=== PATIENT | female | born 1975 | race Caucasian/White ===

== ENCOUNTER 2022-12-19 18:36 | Outpatient (OUT) | payer OTHER, SELFPAY ==
--- NOTE | 2022-12-19 19:01 | MM_ITS ---
Patient Name DENNYS BONNER MR# Age Sex Date Time [id number] F 12/19/2022 18:40 At the Request Of DR TRACI VIGIL RADIOLOGY REPORT PROCEDURE: MM TOMOSYNTHESIS SCREENING BI COMPARISON: MG MAMM SCREEN KEKE W CAD, 12/31/2018. MG MAMM KEKE SCRN W CAD DIG, 11/13/2013. INDICATIONS: Screening Calculator Name NCI Breast Cancer Risk Assessment Tool 5 Year Breast Cancer Risk 1.00% Lifetime Breast Cancer Risk 10.30% Personal Breast Cancer No Personal Ovarian Cancer No Treatments None Family Cancers Grandmother-maternal with breast cancer at age ~60; Father with thyroid/throat cancer at age ~58; Mother with lung/stomach cancer at age ~65; Grandmother-maternal with lung cancer at age 78. LOCATION: [facility] BREAST COMPOSITION: Scattered areas fibroglandular density. FINDINGS: DIAGNOSTIC CATEGORY 2--BENIGN FINDING: RIGHT BREAST: No significant suspicious finding. Scattered benign-appearing calcifications are present. Scattered benign-appearing nodules are present. No significant change has occurred. LEFT BREAST: No significant suspicious finding. Scattered benign-appearing calcifications are present. Stable, chronic 1.5 cm asymmetry within posterior lower inner quadrant No significant change has occurred. RECOMMENDATIONS: ROUTINE MAMMOGRAM AND CLINICAL EVALUATION IN 12 MONTHS. PLEASE NOTE: A NORMAL MAMMOGRAM DOES NOT EXCLUDE THE POSSIBILITY OF BREAST CANCER. A CLINICALLY SUSPICIOUS PALPABLE LUMP SHOULD BE BIOPSIED. Dictated by: Babak Oconnell M.D. on 12/20/2022 at 10:57 Approved by: Babak Oconnell M.D. on 12/20/2022 at 11:03
== END 2022-12-19 18:37 | disposition home or self-care (01) ==
LOC: MAMMO 18:36
PROVIDERS: PCP Family Medicine; Visit Provider Family Medicine
DX: Z12.31 Encounter for screening mammogram for malignant neoplasm of breast (principal); Z80.3 Family history of malignant neoplasm of breast; Z80.1 Family history of malignant neoplasm of trachea, bronchus and lung; Z80.0 Family history of malignant neoplasm of digestive organs; Z80.8 Family history of malignant neoplasm of other organs or systems
CPT/HCPCS: 77063; 77067

== ENCOUNTER 2023-06-27 09:19 | Outpatient (OUT) | payer OTHER, SELFPAY ==
--- NOTE | 2023-06-27 09:26 | CT_ITS ---
[address] [address] Patient Name: DENNYS BONNER MRN: [id number] date: 1975 Sex: F Assigned Patient Location: CT Current Patient Location: CT Accession/Order Number: [id number] Exam Date: 06/27/2023 09:32 Report Date: 06/27/2023 10:34 At the request of: TRACI VIGIL Procedure: CT chest wo con EXAMINATION: CT chest wo con HISTORY: Left Lung Nodule COMPARISON: Plain x-ray 02/09/2021 TECHNIQUE: Multi-planar CT images were created with IV contrast. Axial, Coronal, and Sagittal images. Dose reduction techniques were achieved by using automated exposure control and/or adjustment of mA and/or kV according to patient size and/or use of iterative reconstruction technique. FINDINGS: LUNGS: No visible pulmonary disease. PLEURA: No mass, effusion, or pneumothorax. VASCULATURE: No abnormality. ELOY: No mass or adenopathy. MEDIASTINUM: No mass or adenopathy. CARDIAC: No enlargement, pericardial thickening, or significant calcification. AORTA: No aneurysm or dissection. CHEST WALL: No mass or axillary adenopathy. BONES: No bone lesion or fracture. LIMITED ABDOMEN: No suspicious findings. Limited images of the upper abdomen. Surgical clips from cholecystectomy OTHER: Negative. CT/CT chest wo con IMPRESSION: No significant pulmonary nodules identified Electronically authenticated by: CLAY SMITH Date: 06/27/2023 10:34
== END 2023-06-27 09:20 | disposition home or self-care (01) ==
LOC: CT 09:19
DX: R91.1 Solitary pulmonary nodule (principal)
CPT/HCPCS: 71250